=== PATIENT | male | born 1975 | race Caucasian/White ===

== ENCOUNTER 2020-06-26 07:43 | Emergency (ER) | payer OTHER | END 2020-06-26 09:45 | disposition home or self-care (01) | LOC: JVIRT 07:43 | DX: Z11.59 Encounter for screening for other viral diseases (principal) | CPT/HCPCS: C9803; G2012-GT; Q3014-GT; U0003 ==

== ENCOUNTER 2020-08-23 10:45 | Emergency (ER) | payer OTHER ==
--- NOTE | 2020-08-23 10:50 | TELE ---
HPI Do you have fever,cough or shortness of breath?: No - General Reason For Visit: COVID 19 TEST History Source: Patient Exam Limitations: No Limitations - History of Present Illness Associated Symptoms: reports: denies symptoms 08/23/20 10:47 45 y/o male presents vis [facility] for COVID for travel to [place] this upcoming Friday. Pt has no complaints, no recent illness, no smoking hx, or medical hx. Past History - Travel History Traveled outside of the country in the last 30 days: No Close contact w/someone who was outside of country & ill: No - Medical History Allergies/Adverse Reactions: Allergies Allergy/AdvReac Type Severity Reaction Status Date / Time No Known Allergies Allergy Verified 06/26/20 08:03 Diabetes: No HTN: No - Surgical History Orthopedic Surgery: Yes - Immunization History Tetanus Status: Less than 5 years - Psycho-Social/Smoking History Patient Lives Alone: No Lives with/in: spouse/SO Smoking Status: No Have you smoked in the past 12 months: No - Substance Abuse Hx (Aud[facility] & [facility]) How often the patient has a drink containing alcohol: 2-4 times / month Review of Systems - Review of Systems Able to Perform ROS?: No Limited Nauruan proficient: No Constitutional: No: Symptoms Reported HEENTM: No: Symptoms Reported Respiratory: No: Symptoms reported Cardiac (ROS): No: Symptoms Reported ABD/GI: No: Symptoms Reported : No: Symptoms Reported Musculoskeletal: No: Symptoms Reported Integumentary: No: Symptoms Reported Neurological: No: Symptoms reported Endocrine: No: Symptoms Reported Hematologic/Lymphatic: No: Symptoms Reported *Physical Exam - Physical Exam General Appearance: Yes: Nourished, Appropriately Dressed. No: Apparent Distress HEENT: positive: EOMI Neck: positive: Decreased range of motion Respiratory/Chest: negative: Respiratory Distress Cardiovascular: negative: Edema Gastrointestinal/Abdominal: negative: Distended Musculoskeletal: positive: Normal Inspection Extremity: positive: Normal Inspection Integumentary: positive: Normal Color Neurologic: positive: Motor Strength 5/5 (ambulatory) - Medical Decision Making 08/23/20 10:48 CC: here for covid testing for travel Exam: limited but otherwise normal Plan: covid test ordered Discharge Diagnosis at time of Disposition: Advice given about COVID-19 virus by telephone - Referrals Follow-up Referral(s): Olu Walden [Primary Care Provider] - - Patient Instructions - Discharge Disposition: HOME Condition at time of Disposition: Good
== END 2020-08-23 10:50 | disposition home or self-care (01) ==
LOC: JVIRT 10:45
DX: Z11.59 Encounter for screening for other viral diseases (principal)
CPT/HCPCS: Q3014-GT; U0003